=== PATIENT | male | born 1980 | race Caucasian/White ===

== ENCOUNTER 2017-12-23 17:48 | Emergency (ER) | payer OTHER ==
[2017-12-23] MEDS: LORazepam 0.5 MG TAB PO (20:59)
== END 2017-12-23 21:10 | disposition home or self-care (01) ==
LOC: M ED 17:48
DX: F33.9 Major depressive disorder, recurrent, unspecified (principal); Z79.899 Other long term (current) drug therapy; F17.210 Nicotine dependence, cigarettes, uncomplicated
CPT/HCPCS: 99282